=== PATIENT | female | born 1955 | race Caucasian/White ===

== ENCOUNTER → 2017-05-24 | Outpatient (CLI) | payer OTHER ==
--- NOTE | 2017-05-24 16:10 | US ---
EXAMINATION TYPE: US pelvis complete transvag DATE OF EXAM: 05/24/2017 COMPARISON: NONE CLINICAL HISTORY: R10.31 Abd Pain, N94.10 Dyspareunia. Patient states uncontrollable bladder and RLQ discomfort. Partial hysterectomy in 1990. Transvaginal performed due to bladder not being completely full and patient preference. TECHNIQUE: Transvaginal (TV) and Transabdominal (TA) Date of LMP: Partial hysterectomy EXAM MEASUREMENTS: Uterus: Surgically absent cm Endometrial Stripe: Surgically absent cm Right Ovary: 2.2 x 1.2 x 0.9 cm Left Ovary: 2.3 x 1.2 x 1.5 cm 1. Uterus: Surgically absent 2. Endometrium: Surgically absent 3. Right Ovary: wnl 4. Left Ovary: wnl Spectral, color and waveform doppler imaging shows good arterial and venous flow within the ovaries ; there is no evidence for ovarian torsion. 5. Bilateral Adnexa: wnl 6. Posterior cul-de-sac: no free fluid IMPRESSION: 1. Normal post hysterectomy pelvic ultrasound. 2. Visualized ovaries appear normal.
--- NOTE | 2017-05-24 16:12 | US ---
EXAMINATION TYPE: US abdomen complete DATE OF EXAM: 05/24/2017 COMPARISON: NONE CLINICAL HISTORY: R10.31 Abd Pain, N94.10 Dyspareunia. Patient states having uncontrollable bladder w ith RLQ discomfort EXAM MEASUREMENTS: Liver Length: 14.0 cm Gallbladder Wall: 0.2 cm CHD: 0.3 cm CBD: 0.5 cm Spleen: 9.0 cm Right Kidney: 10.2 x 4.8 x 3.6 cm Left Kidney: 9.4 x 5.0 x 5.9 cm Pancreas: wnl Liver: wnl Gallbladder: wnl Evidence for sonographic Celeste's sign: neg CBD: wnl Spleen: wnl Right Kidney: Prominent pyramids seen Left Kidney: wnl Upper IVC: wnl Abd Aorta: no AAA identified IMPRESSION: 1. Unremarkable abdominal ultrasound
== END | disposition home or self-care (01) ==
LOC: RADUSWWP 08:03
PROVIDERS: ATTEND Family Medicine
DX: N94.10 Unspecified dyspareunia (principal); R10.31 Right lower quadrant pain
CPT/HCPCS: 76700; 76830; 76856

== ENCOUNTER → 2017-08-22 | Outpatient (CLI) | payer OTHER ==
--- NOTE | 2017-08-29 07:12 | MM ---
Reason for exam: follow-up at short interval from prior study. Last mammogram was performed 7 months ago. History: Taking estrogen. Physical Findings: Nurse did not find any significant physical abnormalities on exam. MG Diagnostic Mammo LT w CAD CC and MLO view(s) were taken of the left breast. Prior study comparison: January 17, 2017, mammogram, performed at [place]. December 06, 2016, mammogram, performed at [place]. The breast tissue is heterogeneously dense. This may lower the sensitivity of mammography. Nodular density 12 o'clock left breast 4.1cm from nipple. Additional views recommended. These results were verbally communicated with the patient on 08/29/17. ASSESSMENT: Incomplete: need additional imaging evaluation, BI-RAD 0 RECOMMENDATION: Special view mammogram of the left breast. If lesion persists on supplemental views, image directed ultrasound is recommended. [facility] will attempt to contact patient to return for supplemental views and ultrasound if indicated.
== END | disposition home or self-care (01) ==
LOC: RADMAMWWP 08:53
PROVIDERS: ATTEND Family Medicine
DX: N63.32 Unspecified lump in axillary tail of the left breast (principal)
CPT/HCPCS: 77065

== ENCOUNTER → 2017-09-04 | Outpatient (CLI) | payer OTHER ==
--- NOTE | 2017-09-05 07:46 | MM ---
Reason for exam: additional evaluation requested from abnormal screening. Last mammogram was performed less than 1 month ago. History: Taking estrogen. Physical Findings: Nurse did not find any significant physical abnormalities on exam. MG Follow Up LT No Charge CC, MLO, and spot compression CC view(s) were taken of the left breast. Prior study comparison: August 22, 2017, left breast MG diagnostic mammo LT w CAD. January 17, 2017, mammogram, performed at [place]. December 06, 2016, mammogram, performed at [place]. The breast tissue is heterogeneously dense. This may lower the sensitivity of mammography. No suspicious abnormality. The previously seen abnormality resolves on additional views and appears as fibroglandular tissue/summation artifact These results were verbally communicated with the patient and result sheet given to the patient on 09/04/17. ASSESSMENT: Negative, BI-RAD 1 RECOMMENDATION: Routine screening mammogram of both breasts in 4 months. Back on schedule. Patient is due for screening mammogram in December 2017.
== END | disposition home or self-care (01) ==
LOC: RADMAMWWP 15:36
PROVIDERS: ATTEND Family Medicine
DX: R92.8 Other abnormal and inconclusive findings on diagnostic imaging of breast (principal)

== ENCOUNTER 2017-09-06 09:30 | Day surgery (SDC) | payer OTHER ==
[2017-09-04 11:01] VITALS: BMI 24.2
[~2017-09-06 09:30] MED LIST: LACTATED RINGERS 1,000 ML IV SCH; LIDOCAINE 1% 20 ML VIAL (10MG/ML) FOR IV START INTRADERMA PRN
[2017-09-06 09:49] VITALS: RESP 16; TEMP 98.4
[2017-09-06 10:10] LABS: Glucose,Whole Blood 166 mg/dL (75-99)
[2017-09-06] MEDS ORDERED: PROPOFOL 10 MG/ML 20 ML VIAL IV ONE (10:10)
--- NOTE | 2017-09-06 10:35 | P.PCN ---
Date of Procedure: 09/06/17 Procedure(s) Performed: Brief history: Patient is a pleasant 62-year-old white female, scheduled for an upper endoscopy as well as colonoscopy as as a part of evaluation of intermittent dysphagia to solids for the last 3 months duration and change in bowel habits. Procedure performed: Esophagogastroduodenoscopy with biopsy Colonoscopy Preoperative diagnosis: Intermittent dysphagia to solids of 3 months duration and change in bowel habits Anesthesia: MAC Procedure: After informed consent was obtained from the patient was brought into the endoscopy unit and IV sedation was administered by anesthesia under continuous monitoring. Initially upper endoscopy was done. The Olympus GF 160 video endoscope was inserted inserted into the mouth and esophagus intubated without any difficulty and was gradually advanced into the stomach and duodenum and carefully examined. The bulb and second part of the duodenum appeared normal. The scope was then withdrawn into the stomach adequately insufflated with air and upon careful examination the antrum had mild gastritis and biopsies were done from this area. The body, cardia and fundus appeared normal. The scope was then withdrawn into the esophagus. The GE junction was located at 40 cm to the incisors. It appeared regular with no erythema erosions or ulcerations. Rest of the esophagus appeared normal. biopsies were done from mid and distal esophagus to rule out eosinophilic esophagitis. Patient tolerated the procedure well. At this time the patient continued to remain sedation. Initial digital rectal examination was normal. Olympus CF 160 video colonoscope was then inserted into the rectum and gradually advanced to the cecum without any difficulty. Careful examination was performed as the scope was gradually being withdrawn. The prep was excellent. The cecum, ascending colon, transverse colon, descending colon, sigmoid colon and rectum appeared normal. Retroflexion was performed in the rectum and no lesions were noted. Patient tolerated the procedure well. Impression: 1. Upper endoscopy revealed mild antral gastritis but no evidence of esophagitis or esophageal stricture 2. Colonoscopy was essentially within normal limits with no evidence of colitis or colorectal neoplasia Recommendations: Findings of this examination were discussed with the patient as well as her family. She was advised to follow with the biopsy results. She can have a repeat colonoscopy in 10 years,
[2017-09-06 10:49] LABS: Glucose,Whole Blood 161 mg/dL (75-99)
[2017-09-06 11:20] VITALS: BP 126/74; PULSE 71
== END 2017-09-06 11:37 | disposition home or self-care (01) ==
LOC: ORWHC2ENDO 09:30
PROVIDERS: ATTEND Internal Medicine Gastroenterology
DX: K29.50 Unspecified chronic gastritis without bleeding (principal); K20.9 Esophagitis, unspecified; R19.4 Change in bowel habit; E78.5 Hyperlipidemia, unspecified; E11.9 Type 2 diabetes mellitus without complications; E07.9 Disorder of thyroid, unspecified; Z88.5 Allergy status to narcotic agent; Z79.890 Hormone replacement therapy; Z79.899 Other long term (current) drug therapy; Z96.41 Presence of insulin pump (external) (internal)
CPT/HCPCS: 88305; 45378; 43239; J2704

== ENCOUNTER → 2017-09-17 | Outpatient (CLI) | payer OTHER ==
[2017-09-17 13:46] LABS: T4, Free (Free Thyroxine) 0.79 ng/dL (0.78-2.19)
[2017-09-17 21:31] LABS: Hemoglobin A1C 7.9 % (4.0-6.0)
== END | disposition home or self-care (01) ==
LOC: LABWHC1 12:21
PROVIDERS: ATTEND Internal Medicine
DX: E10.9 Type 1 diabetes mellitus without complications (principal); R41.3 Other amnesia
CPT/HCPCS: 36415; 82607; 83036; 84439; 84443

== ENCOUNTER → 2017-09-17 | Outpatient (CLI) | payer OTHER ==
--- NOTE | 2017-09-19 09:03 | MR ---
EXAMINATION TYPE: MR brain wo con DATE OF EXAM: 09/17/2017 COMPARISON: Outside brain MRI July 13, 2011. HISTORY: Memory loss per order, Headaches with dizziness or hearing loss per patient. TECHNIQUE: Multiplanar, multisequence imaging of the brain and brainstem is performed without IV cont rast. FINDINGS: Diffusion weighted images demonstrate no evidence of a recent infarct or other diffusion abnormality. There is no extraaxial fluid collection or significant white matter signal abnormality. The ventricu lar system and cisternal spaces are normal in size and appearance. The brain volume is age appropria te. Midline structures demonstrate normal morphology. The craniocervical junction appears within normal limits. Normal vascular flow voids are present. The visualized sinuses are clear and the globes are i ntact. No suspicious fluid signal mastoid air cells is present bilaterally. IMPRESSION: No significant change from prior MRI. No new suspicious finding seen to account for patie nt's new symptoms.
== END | disposition home or self-care (01) ==
LOC: RADMRIMAIN 11:28
PROVIDERS: ATTEND Psychiatry & Neurology Neurology
DX: R41.3 Other amnesia (principal)
CPT/HCPCS: 70551

== ENCOUNTER → 2017-09-20 | Outpatient (CLI) | payer OTHER ==
--- NOTE | 2017-09-20 15:40 | US ---
EXAMINATION TYPE: US venous doppler duplex LE LT DATE OF EXAM: 09/20/2017 3:04 PM COMPARISON: NONE CLINICAL HISTORY: M79.605 PAIN OF LT LOWER EXT. SIDE PERFORMED: Left TECHNIQUE: The lower extremity deep venous system is examined utilizing real time linear array sonog [place] with graded compression, doppler sonography and color-flow sonography. VESSELS IMAGED: External Iliac Vein (EIV) Common Femoral Vein Deep Femoral Vein Greater Saphenous Vein * Femoral Vein Popliteal Vein Small Saphenous Vein * Proximal Calf Veins (* superficial vessels) Grayscale, color doppler, spectral doppler imaging performed of the deep veins of the lower extremiti es. There is normal flow, compressibility, vascular waveforms. Left Leg: Negative for DVT IMPRESSION: No evidence for DVT
== END ==
LOC: RADUSWWP 14:36
PROVIDERS: ATTEND Obstetrics & Gynecology
DX: M79.605 Pain in left leg (principal)

== ENCOUNTER → 2017-10-29 | Outpatient (CLI) | payer OTHER ==
[2017-10-29 11:11] LABS: Basophils # (A) 0.1 k/uL (0-0.2); Basophils % (A) 2 %; Eosinophils # (A) 0.2 k/uL (0-0.7); Eosinophils % (A) 3 %; HCT 37.9 % (34.0-46.0); HGB 11.8 gm/dL (11.4-16.0); Lymphocytes # (A) 1.2 k/uL (1.0-4.8); Lymphocytes % (A) 23 %; MCH 28.1 pg (25.0-35.0); MCHC 31.1 g/dL (31.0-37.0); MCV 90.5 fL (80.0-100.0); Mean Platelet Volume 8.8; Monocytes # (A) 0.4 k/uL (0-1.0); Monocytes % (A) 7 %; Neutrophils # (A) 3.3 k/uL (1.3-7.7); Neutrophils % (A) 63 %; Platelet Count 246 k/uL (150-450); RBC 4.19 m/uL (3.80-5.40); RDW 12.3 % (11.5-15.5); WBC 5.2 k/uL (3.8-10.6)
[2017-10-29 11:25] LABS: Anion Gap 10 mmol/L; Blood Urea Nitrogen 22 mg/dL (7-17); Calcium 9.4 mg/dL (8.4-10.2); Carbon Dioxide 29 mmol/L (22-30); Chloride 101 mmol/L (98-107); Glucose 264 mg/dL (74-99); Potassium 4.9 mmol/L (3.5-5.1); Sodium 140 mmol/L (137-145)
[2017-10-29 11:40] LABS: Appearance,Urine Clear (Clear); Bilirubin,Urine Negative (Negative); Blood,Urine Negative (Negative); Color,Urine Light Yellow; Glucose,Urine (UA) 3+ (Negative); Ketones,Urine Negative (Negative); Leukocyte Esterase,Urine Negative (Negative); Nitrite,Urine Negative (Negative); PH, Urine 5.5 (5.0-8.0); Protein,Urine Negative (Negative); Specific Gravity,Urine 1.008 (1.001-1.035); Urobilinogen,Urine <2.0 mg/dL (<2.0)
== END | disposition home or self-care (01) ==
LOC: LABWHC1 10:35
PROVIDERS: ATTEND Urology
DX: Z01.812 Encounter for preprocedural laboratory examination (principal); N39.3 Stress incontinence (female) (male); E11.9 Type 2 diabetes mellitus without complications
CPT/HCPCS: 36415; 80048; 81003; 85025; 87086

== ENCOUNTER 2017-11-07 07:24 | Day surgery (SDC) | payer OTHER ==
[2017-11-01 14:39] VITALS: BMI 25.8
[~2017-11-07 07:24] MED LIST changes: +AMPICILLIN 1,000 MG in SODIUM CHLORIDE 0.9% 50 ML IVPB ONE; +GENTAMICIN 110 MG in SODIUM CHLORIDE 0.9% 100 ML IVPB ONE; -LACTATED RINGERS 1,000 ML IV SCH
[2017-11-07] MEDS ORDERED: ONDANSETRON 4 MG/2 ML VIAL ONE (07:55)
[2017-11-07] MEDS: LACTATED RINGERS 1,000 ML IV SCH ×2 (08:05→09:07)
[2017-11-07 08:11] LABS: Glucose,Whole Blood 192 mg/dL (75-99)
[2017-11-07] MEDS: DEXAMETHASONE SOD PHOSPHATE 10 MG/ML 1 ML VIAL IV ONE ×2 (08:20→11:33)
[2017-11-07] MEDS: ONDANSETRON 4 MG/2 ML VIAL IVP ONE ×2 (08:21→11:34)
[2017-11-07] MEDS ORDERED: GENTAMICIN IN NACL ISO-OSM PMX 80 MG/100 ML BAG IV ONE (09:07)
[2017-11-07] MEDS ORDERED: VASOPRESSIN 20 UNIT/ML 1 ML VIAL SQ ONE ×2 (09:07)
[2017-11-07] MEDS ORDERED: KETOROLAC 30 MG/ML 1 ML VIAL ONE (09:10)
[2017-11-07] MEDS ORDERED: PROPOFOL 10 MG/ML 20 ML VIAL IV ONE (09:10)
[2017-11-07] MEDS ORDERED: MIDAZOLAM 2 MG/2 ML VIAL ONE (09:10)
[2017-11-07] MEDS ORDERED: LIDOCAINE 1% INJ 10MG/ML (20 ML MDV) ONE (09:10)
[2017-11-07] MEDS ORDERED: BACITRACIN 500 UNIT/GM OINT 28.4 GM TUBE TOPICAL ONE (09:53)
[2017-11-07] MEDS ORDERED: FLUTICASONE 50MCG/SPRAY NASAL 16GM EA NOSTRIL PRN (10:00)
[2017-11-07] MEDS ORDERED: Insulin Aspart (For Pump) 100 UNIT/ML VIAL SQ-PUMP SCH (10:00)
[2017-11-07] MEDS ORDERED: KETOROLAC 30 MG/ML 1 ML VIAL IVP PRN (10:01)
--- NOTE | 2017-11-07 10:08 | P.OP ---
Date of Procedure: 11/07/17 Preoperative Diagnosis: Stress urinary incontinence Postoperative Diagnosis: Same Procedure(s) Performed: Trans-obturator tape with cystoscopy Anesthesia: SRUTHI Surgeon: Dieter Guo Estimated Blood Loss (ml): 50 Pathology: none sent Condition: stable Disposition: PACU Indications for Procedure: The patient is a 62-year-old female documented stress urinary incontinence who comes for a trans-obturator tape the risks and complications including the mesh controversy have been discussed. Description of Procedure: The patient is brought to the operating suite and given a general endotracheal anesthesia on the operating table. She's placed in a lithotomy position with a sterile prep and drape. Hercules catheter is introduced sterilely. The labia are sewn laterally with 2-0 silk. A vaginal speculum was introduced into the vagina. 2 incisions in the inguinal crease at the level of the clitoris are made. I then make an incision in the anterior vaginal mucosa after elevating the submucosa off the mucosa with 10 mL of a mixture of 20 units of Pitressin and 200 mL of saline. A midline suburethral incision is made. I dissect lateral the bladder neck bilaterally with Metzenbaum scissors. There is a fair amount of scar tissue from a previous hysterectomy. I then pass the introducers through the inguinal incisions into the obturator foramen into the vaginal space bilaterally. There is a significant amount of scar tissue from hysterectomy. I make sure not to buttonhole the vagina. I then remove the Hercules catheter and perform cystoscopy with a 17-Comor[place] sheath and Foroblique lens. There is no evidence of injury into the bladder. I then attached the graft to the introducers and pull the graft back through the obturator foramen. The trans-obturator tape lay in the mid urethra nicely without tension. I closed the vaginal mucosa with 2-0 Vicryl. I removed the redundant graft at the inguinal incisions and close inguinal incision with 4-0 Vicryl. The patient 's awake and returned recovery room in good condition. A vaginal packing has been placed. She'll be placed in the hospital postoperatively.
[2017-11-07 10:10] LABS: Glucose,Whole Blood 183 mg/dL (75-99)
[2017-11-07] MEDS ORDERED: INSULIN PUMP BASAL RATES 1 EACH MISC MISCELLANE PRN (11:34)
[2017-11-07] MEDS ORDERED: INSPUCOR MISCELLANE PRN (11:34)
[2017-11-07] MEDS ORDERED: INSULIN ASPART 100 UNIT/ML 1 ML 10 ML VIAL SQ PRN (11:34)
[2017-11-07] MEDS: SODIUM CHLORIDE 0.45% 1,000 ML IV SCH (12:16)
[2017-11-07] MEDS: HYDROcodone/APAP 5-325MG 1 EACH TAB PO PRN ×3 (12:19→22:41)
[2017-11-07] MEDS: GABAPENTIN 100 MG CAP PO SCH ×2 (16:10→22:41)
[2017-11-07] MEDS ORDERED: traZODone HCL 100 MG TAB PO SCH (21:00)
[2017-11-08] MEDS: SODIUM CHLORIDE 0.45% 1,000 ML IV SCH (02:36)
[2017-11-08 02:49] VITALS: PULSE 61
[2017-11-08] MEDS ORDERED: LEVOTHYROXINE 88 MCG TAB PO SCH (06:30)
--- NOTE | 2017-11-08 06:48 | P.DS ---
Providers Attending physician: Dieter Guo Primary care physician: [facility] Course: The patient was brought into the hospital for for a trans-obturator tape for her stress urinary incontinence. She underwent this without difficulty. Postoperatively she did well minimal discomfort. She took portal for her pain. Her catheter and packing of been removed this morning. If she voids without difficulty she'll be discharged home. She'll follow-up in the office in one week. Postoperative instructions have been given. She has been given as prescription of portal for pain. She'll resume her home medications. Patient Condition at Discharge: Good Plan - Discharge Summary Discharge Rx Participant: Yes New Discharge Prescriptions: New Ketorolac [Toradol] 10 mg PO Q6HR PRN #20 tab PRN Reason: Pain No Action Polyethylene Glycol 3350 [Miralax] 17 gm PO DAILY traZODone HCL 100 mg PO HS Multivit-Min/Iron/Folic/Lutein [Centrum Silver Women Tablet] 1 each PO DAILY Insulin Aspart (For Pump) [NovoLOG (For Pump)] 0.01 unit SQ-PUMP CONTINUOUS Gabapentin [Neurontin] 200 mg PO TID Levothyroxine Sodium [Synthroid] 88 mcg PO DAILY Estradiol [Estrace] 1 mg PO DAILY Atorvastatin [Lipitor] 10 mg PO DAILY Ascorbic Acid [Vitamin C] 1,000 mg PO DAILY Vitamin C/Biotin [Hair, Skin and Nails] 1 tab PO TID Naproxen Sodium [Aleve] 220 mg PO TID Calcium Polycarbophil [Fibercon] 2,500 mg PO DAILY Loratadine [Claritin] 10 mg PO DAILY Aspirin [Adult Low Dose Aspirin EC] 81 mg PO DAILY Fluticasone Nasal [place] [Flonase Nasal [place]] 1 spray EA NOSTRIL DAILY PRN PRN Reason: Allergy Symptoms Dextrose Chew [Glucose Chew Tab] 4 gm PO DIRECTED PRN PRN Reason: Blood Sugar - Low Discharge Medication List Ascorbic Acid [Vitamin C] 1,000 mg PO DAILY 09/04/17 [History] Atorvastatin [Lipitor] 10 mg PO DAILY 09/04/17 [History] Estradiol [Estrace] 1 mg PO DAILY 09/04/17 [History] Gabapentin [Neurontin] 200 mg PO TID 09/04/17 [History] Insulin Aspart (For Pump) [NovoLOG (For Pump)] 0.01 unit SQ-PUMP CONTINUOUS [History] Levothyroxine Sodium [Synthroid] 88 mcg PO DAILY 09/04/17 [History] Multivit-Min/Iron/Folic/Lutein [Centrum Silver Women Tablet] 1 each PO DAILY [History] Polyethylene Glycol 3350 [Miralax] 17 gm PO DAILY 09/04/17 [History] traZODone HCL 100 mg PO HS 09/04/17 [History] Aspirin [Adult Low Dose Aspirin EC] 81 mg PO DAILY 11/01/17 [History] Calcium Polycarbophil [Fibercon] 2,500 mg PO DAILY 11/01/17 [History] Dextrose Chew [Glucose Chew Tab] 4 gm PO DIRECTED PRN 11/01/17 [History] Fluticasone Nasal [place] [Flonase Nasal [place]] 1 spray EA NOSTRIL DAILY PRN 11/01 [History] Loratadine [Claritin] 10 mg PO DAILY 11/01/17 [History] Naproxen Sodium [Aleve] 220 mg PO TID 11/01/17 [History] Vitamin C/Biotin [Hair, Skin and Nails] 1 tab PO TID 11/01/17 [History] Ketorolac [Toradol] 10 mg PO Q6HR PRN #20 tab 11/08/17 [Rx] Follow up Appointment(s)/Referral(s): Dieter Guo MD [STAFF PHYSICIAN] - 1 Week Discharge Disposition: HOME SELF-CARE
[2017-11-08 08:25] VITALS: BP 115/62; RESP 18; TEMP 97.6
[2017-11-08] MEDS: GABAPENTIN 100 MG CAP PO SCH (08:53)
[2017-11-08] MEDS ORDERED: ATORVASTATIN 10 MG TAB PO SCH (09:00)
[2017-11-08] MEDS ORDERED: LORATADINE 10 MG TAB PO SCH (09:00)
[2017-11-08] MEDS ORDERED: POLYETHYLENE GLYCOL 3350 17 GM POWD.PACK PO SCH (09:00)
== END 2017-11-08 10:29 | disposition home or self-care (01) ==
LOC: OR 07:24 → 6PED 10:04 → OR 11-08 10:29
PROVIDERS: ATTEND Urology
DX: N39.3 Stress incontinence (female) (male) (principal); E03.9 Hypothyroidism, unspecified; E11.311 Type 2 diabetes mellitus with unspecified diabetic retinopathy with macular edema; Z79.4 Long term (current) use of insulin; Z96.41 Presence of insulin pump (external) (internal); M19.90 Unspecified osteoarthritis, unspecified site; F32.9 Major depressive disorder, single episode, unspecified; Z86.73 Personal history of transient ischemic attack (TIA), and cerebral infarction without residual deficits; G47.00 Insomnia, unspecified; Z79.890 Hormone replacement therapy; Z79.899 Other long term (current) drug therapy; Z88.5 Allergy status to narcotic agent
CPT/HCPCS: 57288; C1771; J1580 ×2; J2250; J1100; J2405; J2001; J1885; J0290; J2704

== ENCOUNTER → 2018-01-15 | Outpatient (CLI) | payer OTHER ==
--- NOTE | 2018-01-15 09:37 | US ---
EXAMINATION TYPE: US kidneys/renal and bladder DATE OF EXAM: 01/15/2018 COMPARISON: NONE CLINICAL HISTORY: N18.3 Chronic kidney disease stage 3. diabetic, abn labs, no symptoms EXAM MEASUREMENTS: Right Kidney: 10.0 x 4.2 x 4.0 cm Left Kidney: 10.6 x 4.6 x 4.8 cm Right Kidney: 1.0cm exophytic renal cyst seen mid pole. No hydronephrosis or nephrolithiasis. Left Kidney: No hydronephrosis, nephrolithiasis or masses seen Bladder: wnl Bilateral Jets seen: yes IMPRESSION: No evidence of hydronephrosis or nephrolithiasis.
== END | disposition home or self-care (01) ==
LOC: RADUSWWP 08:32
PROVIDERS: ATTEND Internal Medicine Nephrology
DX: N18.3 Chronic kidney disease, stage 3 (moderate) (principal)
CPT/HCPCS: 76770

== ENCOUNTER 2018-01-16 11:16 | Emergency (ER) | payer OTHER ==
[2018-01-16 11:26] VITALS: TEMP 98.2
[2018-01-16 11:49] LABS: Glucose,Whole Blood 305 mg/dL (75-99)
[2018-01-16] MEDS ORDERED: LORazepam 1 MG TAB PO STA (11:57)
--- NOTE | 2018-01-16 12:00 | ED ---
Dizziness HPI - General Chief Complaint: Dizziness Stated Complaint: Syncope/Dizziness Time Seen by Provider: 01/16/18 11:38 Source: patient Mode of arrival: ambulatory Limitations: no limitations - History of Present Illness Initial Comments: Patient complains of dizziness and shortness of breath. Her symptoms began several hours ago. She has no palpitations. She has no pain or swelling in the arms or legs. She thinks she had a syncopal episode earlier today. She did not come to the hospital after that. Patient denies any chest pain or pressure. She has no belly or back pain. She has no neck pain or stiffness. She is tolerating orotate. She has no change in her vision or hearing. She has no focal weakness. She is a minutes were a. She has no loss of strength. - Related Data Home Medications Medication Instructions Recorded Confirmed Ascorbic Acid [Vitamin C] 1,000 mg PO DAILY 09/04/17 01/16/18 Atorvastatin [Lipitor] 10 mg PO DAILY 09/04/17 01/16/18 Estradiol [Estrace] 1 mg PO DAILY 09/04/17 01/16/18 Gabapentin [Neurontin] 200 mg PO TID 09/04/17 01/16/18 Insulin Aspart (For Pump) [NovoLOG 0.01 unit SQ-PUMP CONTINUOUS 09/04/17 (For Pump)] Levothyroxine Sodium [Synthroid] 88 mcg PO DAILY 09/04/17 01/16/18 Multivit-Min/Iron/Folic/Lutein 1 tab PO DAILY 09/04/17 01/16/18 [Centrum Silver Women Tablet] Polyethylene Glycol 3350 [Miralax] 17 gm PO DAILY 09/04/17 01/16/18 traZODone HCL 100 mg PO HS 09/04/17 01/16/18 Aspirin [Adult Low Dose Aspirin EC] 81 mg PO DAILY 11/01/17 01/16/18 Calcium Polycarbophil [Fibercon] 2,500 mg PO DAILY 11/01/17 01/16/18 Dextrose Chew [Glucose Chew Tab] 4 gm PO DIRECTED PRN 11/01/17 01/16/18 Fluticasone Nasal [place] [Flonase 1 spray EA NOSTRIL DAILY PRN 11/01/17 01/16/18 Nasal [place]] Loratadine [Claritin] 10 mg PO DAILY 11/01/17 01/16/18 Naproxen Sodium [Aleve] 220 mg PO TID 11/01/17 01/16/18 Vitamin C/Biotin [Hair, Skin and 1 tab PO TID 11/01/17 01/16/18 Nails] Allergies Allergy/AdvReac Type Severity Reaction Status Date / Time fentanyl [From Duragesic] Allergy Nausea & Verified 01/16/18 12:02 Vomiting Review of Systems ROS Statement: Those systems with pertinent positive or pertinent negative responses have been documented in the HPI. ROS Other: All systems not noted in ROS Statement are negative. Past Medical History Past Medical History: Diabetes Mellitus, Eye Disorder, Fibromyalgia, GERD/Reflux , Hyperlipidemia, Memory Impairment, Thyroid Disorder Additional Past Medical History / Comment(s): nocc migraines, neuropathy, TIA- no effects, urinary leakage, low blood pressure, occ. palpitations, constipation, insulin pump, macular edema History of Any Multi-Drug Resistant Organisms: None Reported Past Surgical History: Appendectomy, Hysterectomy, Orthopedic Surgery, Tonsillectomy Additional Past Surgical History / Comment(s): left foot surgery, cervical fusion, colonscopy, cataract-not sure which eye Past Anesthesia/Blood Transfusion Reactions: No Reported Reaction Past Psychological History: Anxiety, Depression Smoking Status: Former smoker Past Alcohol Use History: Rare Past Drug Use History: Cocaine - Past Family History Sister(s) Family Medical History: Deep Vein Thrombosis (DVT) General Exam Limitations: no limitations General appearance: alert, in no apparent distress Head exam: Present: atraumatic, normocephalic, normal inspection Eye exam: Present: normal appearance, PERRL, EOMI. Absent: scleral icterus, conjunctival injection, periorbital swelling ENT exam: Present: normal exam, mucous membranes moist Neck exam: Present: normal inspection. Absent: tenderness, meningismus, lymphadenopathy Respiratory exam: Present: normal lung sounds bilaterally. Absent: respiratory distress, wheezes, rales, rhonchi, stridor Cardiovascular Exam: Present: regular rate, normal rhythm, normal heart sounds. Absent: systolic murmur, diastolic murmur, rubs, gallop, clicks GI/Abdominal exam: Present: soft, normal bowel sounds. Absent: distended, tenderness, guarding, rebound, rigid Extremities exam: Present: normal inspection, full ROM, normal capillary refill. Absent: tenderness, pedal edema, joint swelling, calf tenderness Back exam: Present: normal inspection Neurological exam: Present: alert, oriented X3, CN II-XII intact Psychiatric exam: Present: normal affect, normal mood Skin exam: Present: warm, dry, intact, normal color. Absent: rash Course Vital Signs 01/16/18 01/16/18 01/16/18 11:23 12:26 13:26 Temperature 98.2 F Pulse Rate 94 85 83 Respiratory 18 18 18 Rate Blood Pressure 141/85 167/86 116/81 O2 Sat by Pulse 96 96 98 Oximetry EKG Findings - EKG Comments: EKG Findings:: Twelve-lead EKG shows a ventricular rate 76 bpm, normal GA interval and QRS complexes, no ST elevation or depression, interpreted by me as normal sinus rhythm. Medical Decision Making - Medical Decision Making On reevaluation the patient has remained symptom-free throughout her stay in the [facility] department. Her workup is without any evidence of an acute emergency condition. I offered her admission to the hospital, however she states she would prefer to go home. She will follow-up with her doctor as an outpatient. I instructed her to return to the emergency department immediately for symptoms return or if she develops any other problems or complaints. - Lab Data Result diagrams: 01/16/18 11:55 01/16/18 11:55 Lab Results 01/16/18 01/16/18 01/16/18 Range/Units 11:47 11:55 11:55 WBC 5.3 (3.8-10.6) k/uL RBC 4.46 (3.80-5.40) m/uL Hgb 12.9 (11.4-16.0) gm/dL Hct 38.8 (34.0-46.0) % MCV 87.1 (80.0-100.0) fL MCH 29.0 (25.0-35.0) pg MCHC 33.3 (31.0-37.0) g/dL RDW 12.9 (11.5-15.5) % Plt Count 239 (150-450) k/uL Neutrophils % 60 % Lymphocytes % 26 % Monocytes % 8 % Eosinophils % 2 % Basophils % 1 % Neutrophils # 3.2 (1.3-7.7) k/uL Lymphocytes # 1.4 (1.0-4.8) k/uL Monocytes # 0.4 (0-1.0) k/uL Eosinophils # 0.1 (0-0.7) k/uL Basophils # 0.1 (0-0.2) k/uL PT (9.0-12.0) sec INR (<1.2) Sodium 134 L (137-145) mmol/L Potassium 5.3 H (3.5-5.1) mmol/L Chloride 98 (98-107) mmol/L Carbon Dioxide 24 (22-30) mmol/L Anion Gap 12 mmol/L BUN 19 H (7-17) mg/dL Creatinine 1.12 H (0.52-1.04) mg/dL Est GFR (CKD-EPI)AfAm 60 (>60 ml/min/1.73 sqM) Est GFR (CKD-EPI)NonAf 52 (>60 ml/min/1.73 sqM) Glucose 311 H (74-99) mg/dL POC Glucose (mg/dL) 305 H (75-99) mg/dL POC Glu Truckload Checker ID Sy Hardy Calcium 9.8 (8.4-10.2) mg/dL Total Bilirubin 0.7 (0.2-1.3) mg/dL AST 31 (14-36) U/L ALT 38 (9-52) U/L Alkaline Phosphatase 65 (38-126) U/L Troponin I (0.000-0.034) ng/mL Total Protein 6.6 (6.3-8.2) g/dL Albumin 4.3 (3.5-5.0) g/dL Urine Color Urine Appearance (Clear) Urine pH (5.0-8.0) Ur Specific [place] (1.001-1.035) Urine Protein (Negative) Urine Glucose (UA) (Negative) Urine Ketones (Negative) Urine Blood (Negative) Urine Nitrite (Negative) Urine Bilirubin (Negative) Urine Urobilinogen (<2.0) mg/dL Ur Leukocyte Esterase (Negative) Urine Opiates Screen (NotDetected) Ur Oxycodone Screen (NotDetected) Urine Methadone Screen (NotDetected) Ur Propoxyphene Screen (NotDetected) Ur Barbiturates Screen (NotDetected) U Tricyclic Antidepress (NotDetected) Ur Phencyclidine Scrn (NotDetected) Ur Amphetamines Screen (NotDetected) U Methamphetamines Scrn (NotDetected) U Benzodiazepines Scrn (NotDetected) Urine Cocaine Screen (NotDetected) U Marijuana (THC) Screen (NotDetected) 01/16/18 01/16/18 01/16/18 Range/Units 11:55 11:55 13:15 WBC (3.8-10.6) k/uL RBC (3.80-5.40) m/uL Hgb (11.4-16.0) gm/dL Hct (34.0-46.0) % MCV (80.0-100.0) fL MCH (25.0-35.0) pg MCHC (31.0-37.0) g/dL RDW (11.5-15.5) % Plt Count (150-450) k/uL Neutrophils % % Lymphocytes % % Monocytes % % Eosinophils % % Basophils % % Neutrophils # (1.3-7.7) k/uL Lymphocytes # (1.0-4.8) k/uL Monocytes # (0-1.0) k/uL Eosinophils # (0-0.7) k/uL Basophils # (0-0.2) k/uL PT 10.1 (9.0-12.0) sec INR 1.0 (<1.2) Sodium (137-145) mmol/L Potassium (3.5-5.1) mmol/L Chloride (98-107) mmol/L Carbon Dioxide (22-30) mmol/L Anion Gap mmol/L BUN (7-17) mg/dL Creatinine (0.52-1.04) mg/dL Est GFR (CKD-EPI)AfAm (>60 ml/min/1.73 sqM) Est GFR (CKD-EPI)NonAf (>60 ml/min/1.73 sqM) Glucose (74-99) mg/dL POC Glucose (mg/dL) (75-99) mg/dL POC Glu Truckload Checker ID Calcium (8.4-10.2) mg/dL Total Bilirubin (0.2-1.3) mg/dL AST (14-36) U/L ALT (9-52) U/L Alkaline Phosphatase (38-126) U/L Troponin I <0.012 (0.000-0.034) ng/mL Total Protein (6.3-8.2) g/dL Albumin (3.5-5.0) g/dL Urine Color Yellow Urine Appearance Clear (Clear) Urine pH 8.0 (5.0-8.0) Ur Specific [place] 1.006 (1.001-1.035) Urine Protein Negative (Negative) Urine Glucose (UA) 3+ H (Negative) Urine Ketones 1+ H (Negative) Urine Blood Negative (Negative) Urine Nitrite Negative (Negative) Urine Bilirubin Negative (Negative) Urine Urobilinogen <2.0 (<2.0) mg/dL Ur Leukocyte Esterase Negative (Negative) Urine Opiates Screen Not Detected (NotDetected) Ur Oxycodone Screen Not Detected (NotDetected) Urine Methadone Screen Not Detected (NotDetected) Ur Propoxyphene Screen Not Detected (NotDetected) Ur Barbiturates Screen Not Detected (NotDetected) U Tricyclic Antidepress Not Detected (NotDetected) Ur Phencyclidine Scrn Not Detected (NotDetected) Ur Amphetamines Screen Not Detected (NotDetected) U Methamphetamines Scrn Not Detected (NotDetected) U Benzodiazepines Scrn Not Detected (NotDetected) Urine Cocaine Screen Not Detected (NotDetected) U Marijuana (THC) Screen Not Detected (NotDetected) Disposition Clinical Impression: Dizziness Disposition: HOME SELF-CARE Condition: Good Instructions: Dizziness (ED) Is patient prescribed a controlled substance at d/c from ED?: No Referrals: Louise Aviles MD [Primary Care Provider] - 1-2 days Rai Louie MD [STAFF PHYSICIAN] - 1-2 days
[2018-01-16 12:17] LABS: Basophils # (A) 0.1 k/uL (0-0.2); Basophils % (A) 1 %; Eosinophils # (A) 0.1 k/uL (0-0.7); Eosinophils % (A) 2 %; HCT 38.8 % (34.0-46.0); HGB 12.9 gm/dL (11.4-16.0); Lymphocytes # (A) 1.4 k/uL (1.0-4.8); Lymphocytes % (A) 26 %; MCHC 33.3 g/dL (31.0-37.0); MCV 87.1 fL (80.0-100.0); Mean Platelet Volume 8.2; Monocytes # (A) 0.4 k/uL (0-1.0); Monocytes % (A) 8 %; Neutrophils # (A) 3.2 k/uL (1.3-7.7); Neutrophils % (A) 60 %; Platelet Count 239 k/uL (150-450); RBC 4.46 m/uL (3.80-5.40); RDW 12.9 % (11.5-15.5); WBC 5.3 k/uL (3.8-10.6)
[2018-01-16 12:27] LABS: Prothrombin Time 10.1 sec (9.0-12.0)
[2018-01-16 12:29] LABS: Albumin 4.3 g/dL (3.5-5.0); Calcium 9.8 mg/dL (8.4-10.2); Potassium 5.3 mmol/L (3.5-5.1); Total Bilirubin 0.7 mg/dL (0.2-1.3); Total Protein 6.6 g/dL (6.3-8.2)
--- NOTE | 2018-01-16 12:34 | XR ---
EXAMINATION TYPE: XR chest 2V DATE OF EXAM: 01/16/2018 COMPARISON: None HISTORY: Syncopal episode TECHNIQUE: Frontal and lateral views of the chest are obtained. FINDINGS: There is a cervical fusion device present. Mild S-shaped scoliotic curvature of the thorac olumbar spine is seen. Minimal degenerative changes of the thoracic spine. There is no focal air spac e opacity, pleural effusion, or pneumothorax seen. The cardiac silhouette size is within normal limi ts. IMPRESSION: No acute cardiopulmonary process.
--- NOTE | 2018-01-16 12:56 | CT ---
EXAMINATION TYPE: CT brain wo con DATE OF EXAM: 01/16/2018 COMPARISON: MRI 09/17/2017 INDICATION: Syncope. DLP: 1109 mGycm, Automated exposure control for dose reduction was used. CONTRAST: None CT of the brain is performed utilizing 3 mm thick sections through the posterior fossa and 3 mm thick sections through the remaining calvarium. Study is performed within 24 hours of arrival to the hosp [facility]. No abnormal hyperdensity is present to suggest an acute intracranial hemorrhage. No mass lesion is evident. No acute infarcts are evident. Ventricles and sulci are appropriate for the patient age. Paranasal sinuses and mastoid air cells within the [id number] are clear. IMPRESSIONS: 1. Normal CT Brain
[2018-01-16 14:03] LABS: Appearance,Urine Clear (Clear); Bilirubin,Urine Negative (Negative); Blood,Urine Negative (Negative); Color,Urine Yellow; Glucose,Urine (UA) 3+ (Negative); Ketones,Urine 1+ (Negative); Leukocyte Esterase,Urine Negative (Negative); Nitrite,Urine Negative (Negative); Protein,Urine Negative (Negative); Specific Gravity,Urine 1.006 (1.001-1.035); Urobilinogen,Urine <2.0 mg/dL (<2.0)
[2018-01-16 14:25] LABS: Amphetamine Screen,Urine Not Detected (NotDetected); Barbiturate Screen,Urine Not Detected (NotDetected); Benzodiazepines Screen,Urine Not Detected (NotDetected); Cocaine Screen,Urine Not Detected (NotDetected); Methadone Screen, Urine Not Detected (NotDetected); Opiate Screen,Urine Not Detected (NotDetected); Oxycodone Screen, Urine Not Detected (NotDetected); Phencyclidine Screen,Urine Not Detected (NotDetected); Tricyclic Antidepressant,Urine Not Detected (NotDetected); Urn Cannabinoid Scrn Not Detected (NotDetected)
[2018-01-16 14:56] VITALS: BP 127/83; PULSE 89; RESP 16
== END 2018-01-16 14:56 | disposition home or self-care (01) ==
LOC: EC 11:16
DX: R42 Dizziness and giddiness (principal); R06.02 Shortness of breath; E11.9 Type 2 diabetes mellitus without complications; M79.7 Fibromyalgia; K21.9 Gastro-esophageal reflux disease without esophagitis; E78.5 Hyperlipidemia, unspecified; E07.9 Disorder of thyroid, unspecified; F41.9 Anxiety disorder, unspecified; F32.9 Major depressive disorder, single episode, unspecified; Z86.73 Personal history of transient ischemic attack (TIA), and cerebral infarction without residual deficits; Z87.891 Personal history of nicotine dependence; Z79.1 Long term (current) use of non-steroidal anti-inflammatories (NSAID); Z79.4 Long term (current) use of insulin; Z79.82 Long term (current) use of aspirin; Z79.890 Hormone replacement therapy; Z79.899 Other long term (current) drug therapy; Z88.5 Allergy status to narcotic agent
CPT/HCPCS: 36415; 70450; 71046; 80053; 80306; 81003; 84484; 85025; 85610; 93005; 99284

== ENCOUNTER → 2018-01-30 | Outpatient (CLI) | payer OTHER ==
[2018-01-30 13:23] LABS: Appearance,Urine Clear (Clear); Bilirubin,Urine Negative (Negative); Blood,Urine Negative (Negative); Color,Urine Light Yellow; Glucose,Urine (UA) Negative (Negative); Ketones,Urine Negative (Negative); Leukocyte Esterase,Urine Negative (Negative); Nitrite,Urine Negative (Negative); Protein,Urine Negative (Negative); Specific Gravity,Urine 1.005 (1.001-1.035); Urobilinogen,Urine <2.0 mg/dL (<2.0)
[2018-01-30 13:37] LABS: Basophils # (A) 0.1 k/uL (0-0.2); Basophils % (A) 2 %; Eosinophils # (A) 0.1 k/uL (0-0.7); Eosinophils % (A) 3 %; HCT 37.4 % (34.0-46.0); Lymphocytes # (A) 1.1 k/uL (1.0-4.8); Lymphocytes % (A) 26 %; MCH 29.1 pg (25.0-35.0); MCHC 32.1 g/dL (31.0-37.0); MCV 90.4 fL (80.0-100.0); Mean Platelet Volume 8.7; Monocytes # (A) 0.3 k/uL (0-1.0); Monocytes % (A) 8 %; Neutrophils # (A) 2.6 k/uL (1.3-7.7); Neutrophils % (A) 59 %; Platelet Count 229 k/uL (150-450); RBC 4.14 m/uL (3.80-5.40); RDW 13.1 % (11.5-15.5); WBC 4.4 k/uL (3.8-10.6)
[2018-01-30 13:44] LABS: Calcium 8.7 mg/dL (8.4-10.2); Phosphorus 3.5 mg/dL (2.5-4.5); Potassium 4.7 mmol/L (3.5-5.1); Uric Acid 3.7 mg/dL (3.7-7.4)
[2018-01-30 19:34] LABS: Iron Saturation 25.66 (12.00-45.00)
[2018-01-30 19:42] LABS: Vitamin D 25 Hydroxy 34.4 ng/mL (30.0-100.0)
[2018-01-30 19:46] LABS: Parathyroid Hormone Intact 49.3 pg/mL (14.0-72.0)
== END | disposition home or self-care (01) ==
LOC: LABWHC1 12:12
PROVIDERS: ATTEND Internal Medicine Nephrology
DX: N18.3 Chronic kidney disease, stage 3 (moderate) (principal); D63.1 Anemia in chronic kidney disease; E21.3 Hyperparathyroidism, unspecified; E55.9 Vitamin D deficiency, unspecified; M10.9 Gout, unspecified; N39.0 Urinary tract infection, site not specified
CPT/HCPCS: 36415; 80048; 81003; 82306; 82728; 83540; 83550; 83735; 83970; 84100; 84550; 85025

== ENCOUNTER → 2018-01-31 | Outpatient (CLI) | payer OTHER ==
--- NOTE | 2018-02-01 09:58 | MM ---
Reason for exam: screening (asymptomatic). Last mammogram was performed 5 months ago. History: Patient is postmenopausal. Took hormonal contraceptives for 20 years beginning at age 14. Taking estrogen. Physical Findings: Nurse did not find any significant physical abnormalities on exam. MG Screening Mammo w CAD Bilateral CC and MLO view(s) were taken. Prior study comparison: September 04, 2017, left breast MG follow up LT no charge. August 22, 2017, left breast MG diagnostic mammo LT w CAD. The breast tissue is heterogeneously dense. This may lower the sensitivity of mammography. Finding: There are typically benign round calcifications in the right breast. There is no discrete abnormality. ASSESSMENT: Benign, BI-RAD 2 RECOMMENDATION: Routine screening mammogram of both breasts in 1 year.
== END | disposition home or self-care (01) ==
LOC: RADMAMWWP 12:58
PROVIDERS: ATTEND Family Medicine
DX: Z12.31 Encounter for screening mammogram for malignant neoplasm of breast (principal)
CPT/HCPCS: 77067

== ENCOUNTER → 2018-03-19 | Outpatient (CLI) | payer OTHER ==
[2018-03-19 12:12] LABS: Basophils # (A) 0.1 k/uL (0-0.2); Basophils % (A) 1 %; Eosinophils # (A) 0.1 k/uL (0-0.7); Eosinophils % (A) 2 %; HCT 36.6 % (34.0-46.0); HGB 11.7 gm/dL (11.4-16.0); Lymphocytes # (A) 0.7 k/uL (1.0-4.8); Lymphocytes % (A) 12 %; MCH 28.6 pg (25.0-35.0); MCHC 31.9 g/dL (31.0-37.0); MCV 89.5 fL (80.0-100.0); Monocytes # (A) 0.5 k/uL (0-1.0); Monocytes % (A) 8 %; Neutrophils # (A) 4.2 k/uL (1.3-7.7); Neutrophils % (A) 75 %; Platelet Count 220 k/uL (150-450); RBC 4.09 m/uL (3.80-5.40); RDW 12.9 % (11.5-15.5); WBC 5.6 k/uL (3.8-10.6)
[2018-03-20 13:21] LABS: Alt. alternata IgE Class CLASS 0; Alternaria alternata IgE <0.35 kU/L (<0.35); Asperg. fumagatus IgE <0.35 kU/L (<0.35); Asperg. fumagatus IgE Class CLASS 0; Bermuda Grass IgE <0.35 kU/L (<0.35); Birch(Com.Silvr) IgE <0.35 kU/L (<0.35); Birch(Com.Silvr) IgE Class CLASS 0; Cat Epith & Dander IgE <0.35 kU/L (<0.35); Cat Epith & Dander IgE Class CLASS 0; Clad herbarum IgE <0.35 kU/L (<0.35); Cockroach IgE <0.35 kU/L (<0.35); Cottonwood IgE <0.35 kU/L (<0.35); Dermato. Pteronyssinus IgE <0.35 kU/L (<0.35); Dermato. farinae IgE <0.35 kU/L (<0.35); Dermato. farinae IgE Class CLASS 0; Dog Dander IgE <0.35 kU/L (<0.35); Elm IgE <0.35 kU/L (<0.35); Maple (Box Elder) IgE <0.35 kU/L (<0.35); Maple (Box Elder) IgE Class CLASS 0; Mountain Cedar IgE <0.35 kU/L (<0.35); Mountain Cedar IgE Class CLASS 0; Mouse Urine IgE Class CLASS 0; Nettle IgE <0.35 kU/L (<0.35); Nettle IgE Class CLASS 0; Oak IgE <0.35 kU/L (<0.35); Penicillium notatum IgE Class CLASS 0; Rough Marshelder IgE <0.35 kU/L (<0.35); Rough Marshelder IgE Class CLASS 0; Timothy Grass IgE <0.35 kU/L (<0.35); White Ash IgE Class CLASS 0
[2018-03-21 12:01] LABS: Alpha 1 Anti-Trypsin 128 mg/dL (90 - 200)
== END | disposition home or self-care (01) ==
LOC: LABWHC1 11:12
PROVIDERS: ATTEND Internal Medicine
DX: J45.909 Unspecified asthma, uncomplicated (principal)
CPT/HCPCS: 36415; 82103; 82104; 82785; 85025; 86001; 86003; 86606; 86609

== ENCOUNTER → 2018-03-26 | Outpatient (CLI) | payer MEDICARE, OTHER | END | disposition home or self-care (01) | LOC: CPPFTMAIN 14:27 | PROVIDERS: ATTEND Internal Medicine | DX: R06.02 Shortness of breath (principal) | CPT/HCPCS: 94060; 94726; 94729 ==

== ENCOUNTER 2018-04-10 16:09 | Emergency (ER) | payer MEDICARE, OTHER ==
[2018-04-10 16:45] VITALS: BP 130/77; PULSE 65; RESP 18; TEMP 98.3
[2018-04-10] MEDS ORDERED: PROPARACAINE 0.5% OPHTH DROPS 15 ML BTL LEFT EYE STA (17:39)
--- NOTE | 2018-04-10 18:31 | ED ---
General Adult HPI - General Chief complaint: ENT Stated complaint: eye pain (left) Time Seen by Provider: 04/10/18 17:34 Source: patient Mode of arrival: ambulatory Limitations: no limitations - History of Present Illness Initial comments: 63-year-old female patient presents the emergency department today for evaluation of left eye pain and photosensitivity. Patient states that around 10 this morning she had an injection to the left eye for diabetic retinopathy. Patient states she gets these injections every 2-3 weeks for many years. Patient states is the first time she's ever had pain after. Patient states that the pain is severe, sharp, and stabbing. She denies any headache, dizziness, or weakness. Denies any numbness, tingling, or weakness to her arms and legs. Denies any drainage from the eye. Denies any eye swelling. Patient denies any recent rash, fever, chills, shortness breath, chest pain, abdominal pain, nausea, vomiting, diarrhea, constipation, back pain, hematuria, dysuria, urinary urgency, urinary frequency, or any other complaints. - Related Data Home Medications Medication Instructions Recorded Confirmed Ascorbic Acid [Vitamin C] 1,000 mg PO DAILY 09/04/17 04/10/18 Atorvastatin [Lipitor] 10 mg PO DAILY 09/04/17 04/10/18 Estradiol [Estrace] 1 mg PO DAILY 09/04/17 04/10/18 Gabapentin [Neurontin] 300 mg PO TID 09/04/17 04/10/18 Insulin Aspart (For Pump) [NovoLOG 0.01 unit SQ-PUMP CONTINUOUS 09/04/17 (For Pump)] Levothyroxine Sodium [Synthroid] 88 mcg PO DAILY 09/04/17 04/10/18 Multivit-Min/Iron/Folic/Lutein 1 tab PO DAILY 09/04/17 04/10/18 [Centrum Silver Women Tablet] Polyethylene Glycol 3350 [Miralax] 17 gm PO DAILY PRN 09/04/17 04/10/18 traZODone HCL 150 mg PO HS 09/04/17 04/10/18 Aspirin [Adult Low Dose Aspirin EC] 81 mg PO DAILY 11/01/17 04/10/18 Calcium Polycarbophil [Fibercon] 2,500 mg PO DAILY 11/01/17 04/10/18 Dextrose Chew [Glucose Chew Tab] 4 gm PO DIRECTED PRN 11/01/17 04/10/18 Fluticasone Nasal [place] [Flonase 1 spray EA NOSTRIL DAILY PRN 11/01/17 04/10/18 Nasal [place]] Loratadine [Claritin] 10 mg PO DAILY 11/01/17 04/10/18 Naproxen Sodium [Aleve] 220 mg PO TID PRN 11/01/17 04/10/18 Vitamin C/Biotin [Hair, Skin and 1 tab PO TID 11/01/17 04/10/18 Nails] Montelukast Sodium [Singulair] 10 mg PO HS 04/10/18 04/10/18 Allergies Allergy/AdvReac Type Severity Reaction Status Date / Time fentanyl [From Duragesic] Allergy Nausea & Verified 04/10/18 17:44 Vomiting Review of Systems ROS Statement: Those systems with pertinent positive or pertinent negative responses have been documented in the HPI. ROS Other: All systems not noted in ROS Statement are negative. Past Medical History Past Medical History: Diabetes Mellitus, Eye Disorder, Fibromyalgia, GERD/Reflux , Hyperlipidemia, Memory Impairment, Thyroid Disorder Additional Past Medical History / Comment(s): nocc migraines, neuropathy, TIA- no effects, urinary leakage, low blood pressure, occ. palpitations, constipation, insulin pump, macular edema History of Any Multi-Drug Resistant Organisms: None Reported Past Surgical History: Appendectomy, Hysterectomy, Orthopedic Surgery, Tonsillectomy Additional Past Surgical History / Comment(s): left foot surgery, cervical fusion, colonscopy, cataract-not sure which eye Past Anesthesia/Blood Transfusion Reactions: No Reported Reaction Past Psychological History: No Psychological Hx Reported, Depression Smoking Status: Former smoker Past Alcohol Use History: Rare Past Drug Use History: None Reported - Past Family History Sister(s) Family Medical History: Deep Vein Thrombosis (DVT) General Exam Limitations: no limitations General appearance: alert, in no apparent distress, other (this is a well- developed, well-nourished adult female patient in mild distress related to pain. Vital signs upon presentation are temperature 98.2F, pulse 65, respirations 18, blood pressure 130/77, pulse ox 98% on room air.) Eye exam: Present: normal appearance, PERRL, EOMI, conjunctival injection (Left- sided conjunctival injection), other (Fluorescein stain with Wood's Lamp examination was performed, there is a large corneal abrasion to the center of the left cornea. No evidence of hyphema. Pupil is round and briskly reactive. ). Absent: scleral icterus, periorbital swelling ENT exam: Present: normal exam, normal oropharynx, mucous membranes moist Respiratory exam: Present: normal lung sounds bilaterally. Absent: respiratory distress, wheezes, rales, rhonchi, stridor Cardiovascular Exam: Present: regular rate, normal rhythm, normal heart sounds. Absent: systolic murmur, diastolic murmur, rubs, gallop, clicks GI/Abdominal exam: Present: soft, normal bowel sounds. Absent: distended, tenderness, guarding, rebound, rigid Neurological exam: Present: alert, oriented X3, CN II-XII intact Psychiatric exam: Present: normal affect, normal mood Skin exam: Present: warm, dry, intact, normal color. Absent: rash Course Vital Signs 04/10/18 16:40 Temperature 98.3 F Pulse Rate 65 Respiratory 18 Rate Blood Pressure 130/77 O2 Sat by Pulse 98 Oximetry Medical Decision Making - Medical Decision Making 63-year-old female patient presents to the emergency department today for evaluation of left eye pain after having an injection around 10am this morning. Physical examination did reveal a corneal abrasion to the left cornea. I did talk to the terminal make up operator on-call Dr. Alejandro, he will see patient in the office at 08 100 at tomorrow. Patient was given erythromycin ointment to apply every 6 hours. Patient is instructed to return here really for any new, worsening, or concerning symptoms. Return partners discussed in detail. She verbalizes understanding and agrees with this plan. Disposition Clinical Impression: Left corneal abrasion Disposition: HOME SELF-CARE Condition: Good Instructions: Erythromycin (Into the eye), Corneal Abrasion (ED) Additional Instructions: Apply 1cm ribbon of erythromycin ointment to the left lower lid and blink through. Use this every 4-6 hours. Follow up in Dr. Alejandro's office at 8am tomorrow morning. Return here immediately for any new, worsening, or concerning symptoms. Is patient prescribed a controlled substance at d/c from ED?: No Referrals: Louise Aviles MD [Primary Care Provider] - 1-2 days Kade Alejandro MD [STAFF PHYSICIAN] - 1-2 days Time of Disposition: 19:00
[2018-04-10] MEDS ORDERED: ERYTHROMYCIN 5 MG/GM OPHTH OINT 3.5 GM TUBE LEFT EYE STA (18:58)
== END 2018-04-10 19:32 | disposition home or self-care (01) ==
LOC: EC 16:09
DX: S05.02XA Injury of conjunctiva and corneal abrasion without foreign body, left eye, initial encounter (principal); F32.9 Major depressive disorder, single episode, unspecified; E11.311 Type 2 diabetes mellitus with unspecified diabetic retinopathy with macular edema; E11.40 Type 2 diabetes mellitus with diabetic neuropathy, unspecified; M79.7 Fibromyalgia; K21.9 Gastro-esophageal reflux disease without esophagitis; E78.5 Hyperlipidemia, unspecified; Z87.891 Personal history of nicotine dependence; Z79.82 Long term (current) use of aspirin; Z79.3 Long term (current) use of hormonal contraceptives; Z79.4 Long term (current) use of insulin; Z79.899 Other long term (current) drug therapy; Z88.8 Allergy status to other drugs, medicaments and biological substances; Z86.73 Personal history of transient ischemic attack (TIA), and cerebral infarction without residual deficits; Z86.69 Personal history of other diseases of the nervous system and sense organs; Z98.42 Cataract extraction status, left eye; X58.XXXA Exposure to other specified factors, initial encounter
CPT/HCPCS: 99283

== ENCOUNTER 2021-04-06 13:02 | Emergency (ER) | payer MEDICARE, OTHER ==
[2021-04-06 13:22] VITALS: TEMP 97.9
--- NOTE | 2021-04-06 14:22 | ED ---
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 Patient states over the last month she has been feeling lightheaded but not fallen. Patient states when she is lightheaded she's taken her blood pressure and his been consistently low. Patient states this is been occurring since she is left [facility] after surgery. Patient states they are aware of that her visiting nurse for the first month that saw her was aware of it. Patient states today they told her to come be evaluated in the emergency department. Patient states today her blood pressure has not been low. Patient states she does not have any chest pain L petitions or shortness of breath at this time. Patient states she does have a previous history of blood clots and she doesn't know why. Patient states she was in her leg and her long. Patient denies any recent fever chills or cough. Patient denies any abdominal pain. (Ponce Moffett) - Related Data Home Medications Medication Instructions Recorded Confirmed Atorvastatin [Lipitor] 10 mg PO HS 09/04/17 04/06/21 Insulin Aspart (For Pump) [NovoLOG 0.01 unit SQ-PUMP CONTINUOUS 09/04/17 04/06/21 (For Pump)] Levothyroxine Sodium [Synthroid] 88 mcg PO DAILY 09/04/17 04/06/21 traZODone HCL 150 mg PO HS 09/04/17 04/06/21 Biotin 10,000 mcg PO DAILY 04/06/21 04/06/21 Cholecalciferol [Vitamin D3 (25 25 mcg PO DAILY 04/06/21 04/06/21 Mcg = 1000 Iu)] Gabapentin [Neurontin] 300 mg PO HS 04/06/21 04/06/21 Gabapentin [Neurontin] 600 mg PO DAILY 04/06/21 04/06/21 Allergies Allergy/AdvReac Type Severity Reaction Status Date / Time fentanyl [From Duragesic] Allergy Nausea & Verified 04/06/21 15:02 Vomiting Review of Systems ROS Other: All systems not noted in ROS Statement are negative. <MoffettPonce - Last Filed: 04/06/21 14:49> ROS Other: All systems not noted in ROS Statement are negative. <Brock Crowell - Last Filed: 04/06/21 16:55> ROS Statement: Those systems with pertinent positive or pertinent negative responses have been documented in the HPI. Past Medical History Past Medical History: Diabetes Mellitus, Eye Disorder, Fibromyalgia, GERD/Reflux, Hyperlipidemia, Memory Impairment, Thyroid Disorder Additional Past Medical History / Comment(s): nocc migraines, neuropathy, TIA-no effects, urinary leakage, low blood pressure, occ. palpitations, constipation, insulin pump, macular edema History of Any Multi-Drug Resistant Organisms: None Reported Past Surgical History: Appendectomy, Coronary Bypass/CABG, Hysterectomy, Orthopedic Surgery, Tonsillectomy Additional Past Surgical History / Comment(s): left foot surgery, cervical fusion, colonscopy, cataract-not sure which eye Past Anesthesia/Blood Transfusion Reactions: No Reported Reaction Past Psychological History: No Psychological Hx Reported, Depression Smoking Status: Former smoker Past Alcohol Use History: Rare Past Drug Use History: None Reported - Past Family History Sister(s) Family Medical History: Deep Vein Thrombosis (DVT) <Ponce Moffett - Last Filed: 04/06/21 14:49> General Exam Limitations: no limitations <Ponce Moffett - Last Filed: 04/06/21 14:49> - General Exam Comments Initial Comments: GENERAL: Patient is well-developed and well-nourished. Patient is nontoxic and well- hydrated and is in no acute distress. ENT: Neck is soft and supple. No significant lymphadenopathy is noted. Oropharynx is clear. Moist mucous membranes. Neck has full range of motion without eliciting any pain. EYES: The sclera were anicteric and conjunctiva were pink and moist. Extraocular movements were intact and pupils were equal round and reactive to light. E yelids were unremarkable. PULMONARY: Unlabored respirations. Good breath sounds bilaterally. No audible rales rhonchi or wheezing was noted. CARDIOVASCULAR: There is a regular rate and rhythm without any murmurs gallops or rubs. ABDOMEN: Soft and nontender with normal bowel sounds. SKIN: Skin is clear with no lesions or rashes and otherwise unremarkable. NEUROLOGIC: Patient is alert and oriented x3. Cranial nerves II through XII are grossly intact. Motor and sensory are also intact. Normal speech, volume and content. Symmetrical smile. MUSCULOSKELETAL: Normal extremities with adequate strength and full range of motion. No lower extremity swelling or edema. No calf tenderness. LYMPHATICS: No significant lymphadenopathy is noted PSYCHIATRIC: Normal psychiatric evaluation (Ponce Moffett) Course <Brock Crowell - Last Filed: 04/06/21 16:55> Vital Signs 04/06/21 04/06/21 13:17 14:41 Temperature 97.9 F Pulse Rate 76 Respiratory 20 Rate Blood Pressure 142/81 Blood Pressure 143/88 [Right Arm Sitting] Blood Pressure 137/84 [Right Arm Standing] Blood Pressure 145/85 [Right Arm Supine] O2 Sat by Pulse 99 Oximetry - Reevaluation(s) Reevaluation #1: 04/06/21 16:54 The patient was evaluated by me after being signed out at shift change. No further episodes. The workup was since he unremarkable. Patient be discharged to follow-up with her doctor as planned return when necessary (Brock Crowell) Medical Decision Making <Ponce Moffett - Last Filed: 04/06/21 14:49> - Lab Data Result diagrams: 04/06/21 15:04/06/21 15:01 <Brock Crowell - Last Filed: 04/06/21 16:55> - Medical Decision Making EKG shows normal sinus rhythm at 81 bpm NE interval 150 QRS is 70 QT interval is 424 QTC is 492. Patient's EKG shows no ST segment elevation or depression. Dr. Crowell be taking over the care of this patient at 3 PM (Ponce Moffett) - Lab Data Lab Results 04/06/21 04/06/21 04/06/21 Range/Units 15: 15: 15: WBC 5.6 (3.8-10.6) k/uL RBC 4.12 (3.80-5.40) m/uL Hgb 11.3 L (11.4-16.0) gm/dL Hct 34.5 (34.0-46.0) % MCV 83.7 (80.0-100.0) fL MCH 27.4 (25.0-35.0) pg MCHC 32.7 (31.0-37.0) g/dL RDW 16.0 H (11.5-15.5) % Plt Count 250 (150-450) k/uL MPV 8.7 Neutrophils % 57 % Lymphocytes % 30 % Monocytes % 6 % Eosinophils % 2 % Basophils % 1 % Neutrophils # 3.2 (1.3-7.7) k/uL Lymphocytes # 1.6 (1.0-4.8) k/uL Monocytes # 0.4 (0-1.0) k/uL Eosinophils # 0.1 (0-0.7) k/uL Basophils # 0.1 (0-0.2) k/uL Hypochromasia Slight PT 10.1 (9.0-12.0) sec INR 0.9 (<1.2) APTT 21.3 L (22.0-30.0) sec D-Dimer 0.71 H (<0.60) mg/L FEU Sodium 139 (137-145) mmol/L Potassium 3.9 (3.5-5.1) mmol/L Chloride 105 (98-107) mmol/L Carbon Dioxide 28 (22-30) mmol/L Anion Gap 6 mmol/L BUN 14 (7-17) mg/dL Creatinine 0.87 (0.52-1.04) mg/dL Est GFR (CKD-EPI)AfAm 79 (>60 ml/min/1.73 sqM) Est GFR (CKD-EPI)NonAf 69 (>60 ml/min/1.73 sqM) Glucose 89 (74-99) mg/dL Calcium 9.6 (8.4-10.2) mg/dL Magnesium 2.2 (1.6-2.3) mg/dL Total Bilirubin 0.4 (0.2-1.3) mg/dL AST 29 (14-36) U/L ALT 23 (4-34) U/L Alkaline Phosphatase 76 (38-126) U/L Troponin I (0.000-0.034) ng/mL Total Protein 6.4 (6.3-8.2) g/dL Albumin 4.1 (3.5-5.0) g/dL 04/06/21 Range/Units 15:01 WBC (3.8-10.6) k/uL RBC (3.80-5.40) m/uL Hgb (11.4-16.0) gm/dL Hct (34.0-46.0) % MCV (80.0-100.0) fL MCH (25.0-35.0) pg MCHC (31.0-37.0) g/dL RDW (11.5-15.5) % Plt Count (150-450) k/uL MPV Neutrophils % % Lymphocytes % % Monocytes % % Eosinophils % % Basophils % % Neutrophils # (1.3-7.7) k/uL Lymphocytes # (1.0-4.8) k/uL Monocytes # (0-1.0) k/uL Eosinophils # (0-0.7) k/uL Basophils # (0-0.2) k/uL Hypochromasia PT (9.0-12.0) sec INR (<1.2) APTT (22.0-30.0) sec D-Dimer (<0.60) mg/L FEU Sodium (137-145) mmol/L Potassium (3.5-5.1) mmol/L Chloride (98-107) mmol/L Carbon Dioxide (22-30) mmol/L Anion Gap mmol/L BUN (7-17) mg/dL Creatinine (0.52-1.04) mg/dL Est GFR (CKD-EPI)AfAm (>60 ml/min/1.73 sqM) Est GFR (CKD-EPI)NonAf (>60 ml/min/1.73 sqM) Glucose (74-99) mg/dL Calcium (8.4-10.2) mg/dL Magnesium (1.6-2.3) mg/dL Total Bilirubin (0.2-1.3) mg/dL AST (14-36) U/L ALT (4-34) U/L Alkaline Phosphatase (38-126) U/L Troponin I <0.012 (0.000-0.034) ng/mL Total Protein (6.3-8.2) g/dL Albumin (3.5-5.0) g/dL Disposition <Ponce Moffett - Last Filed: 04/06/21 14:49> Is patient prescribed a controlled substance at d/c from ED?: No <Brock Crowell - Last Filed: 04/06/21 16:55> Clinical Impression: Hypotensive episode, Elevated d-dimer Disposition: HOME SELF-CARE Condition: Good Instructions (If sedation given, give patient instructions): Hypotension (ED) Referrals: Louise Aviles MD [Primary Care Provider] - 1-2 days
[2021-04-06 15:14] LABS: Basophils # (A) 0.1 k/uL (0-0.2); Basophils % (A) 1 %; Eosinophils # (A) 0.1 k/uL (0-0.7); Eosinophils % (A) 2 %; HCT 34.5 % (34.0-46.0); HGB 11.3 gm/dL (11.4-16.0); Hypochromasia Slight; Lymphocytes # (A) 1.6 k/uL (1.0-4.8); Lymphocytes % (A) 30 %; MCH 27.4 pg (25.0-35.0); MCHC 32.7 g/dL (31.0-37.0); MCV 83.7 fL (80.0-100.0); Mean Platelet Volume 8.7; Monocytes # (A) 0.4 k/uL (0-1.0); Monocytes % (A) 6 %; Neutrophils # (A) 3.2 k/uL (1.3-7.7); Neutrophils % (A) 57 %; Platelet Count 250 k/uL (150-450); RBC 4.12 m/uL (3.80-5.40); WBC 5.6 k/uL (3.8-10.6)
[2021-04-06 15:19] LABS: Albumin 4.1 g/dL (3.5-5.0); Calcium 9.6 mg/dL (8.4-10.2); Magnesium 2.2 mg/dL (1.6-2.3); Potassium 3.9 mmol/L (3.5-5.1); Total Bilirubin 0.4 mg/dL (0.2-1.3); Total Protein 6.4 g/dL (6.3-8.2)
--- NOTE | 2021-04-06 15:19 | XR ---
EXAMINATION TYPE: XR chest 2V DATE OF EXAM: 04/06/2021 COMPARISON: 01/16/2018 INDICATION: Chest pain TECHNIQUE: Frontal and lateral views of the chest are obtained. FINDINGS: The heart size is normal. The pulmonary vasculature is normal. The lungs are clear. Right lower lung field nipple shadows likely present. This study can be repeate d with nipple markers for confirmation. IMPRESSION: 1. No acute pulmonary process. 2. Nipple shadow right lower lung field. Follow-up study with nipple markers could be performed for c onfirmation.
[2021-04-06 15:28] LABS: INR 0.9 (<1.2); Prothrombin Time 10.1 sec (9.0-12.0)
[2021-04-06 15:38] LABS: Partial Thromboplastin Time 21.3 sec (22.0-30.0)
--- NOTE | 2021-04-06 16:24 | CT ---
CT CHEST FOR PULMONARY EMBOLISM. EXAMINATION TYPE: CT angio chest DATE OF EXAM: 04/06/2021 INDICATION: Hypotension, elevated d-dimer. CT DLP: 229.6 mGycm, Automated exposure control for dose reduction was used. CONTRAST: Patient injected with 100 mL of Isovue 370. COMPARISON: None TECHNIQUE: CT of the chest is performed on a spiral scan at 2 mm thick sections. Study is performed with intravenous contrast timed for evaluation for pulmonary embolism. This will limit additional po rtions of the evaluation. 3-D MIP images reconstructed by the technologist are reviewed on the compu ter in the coronal and sagittal planes. FINDINGS: No persistent filling defects are evident to suggest an acute pulmonary embolism. No mediastinal or hilar adenopathy enlarged by CT criteria is evident. The ascending aorta diameter at the level of the main pulmonary artery is 3.1 cm. The main pulmonary artery diameter at the bifur cation is 2.5 cm. Lung windows are clear. Limited CT section through the upper abdomen are unremarkable. IMPRESSIONS: 1. No acute embolism.
[2021-04-06 17:20] VITALS: BP 126/82; PULSE 77; RESP 18
== END 2021-04-06 17:20 | disposition home or self-care (01) ==
LOC: EC 13:02
DX: I95.9 Hypotension, unspecified (principal); R79.89 Other specified abnormal findings of blood chemistry; E11.40 Type 2 diabetes mellitus with diabetic neuropathy, unspecified; E78.5 Hyperlipidemia, unspecified; K21.9 Gastro-esophageal reflux disease without esophagitis; M79.7 Fibromyalgia; Z79.4 Long term (current) use of insulin; Z79.890 Hormone replacement therapy; Z79.899 Other long term (current) drug therapy; Z87.891 Personal history of nicotine dependence
CPT/HCPCS: 36415; 93005; 85379; 80053; 83735; 84484; 85025; 85610; 85730; 71046; 71275; 99285; Q9967